=== PATIENT | female | born 1970 | race Caucasian/White ===

== ENCOUNTER 2023-09-06 11:30 | Inpatient (IN) | payer OTHER ==
[~2023-09-06] VITALS: Ht 149.9 cm; Wt 60.8 kg
[2024-01-23 10:33] LABS: BASOPHILS % (AUTO) 0.3 % (0.0-2.0); EOSINOPHILS # (AUTO) 0.3 K/uL (0-0.4); EOSINOPHILS % (AUTO) 5.5 % (0.0-4.0); HEMOGLOBIN 12.7 g/dL (12.0-16.0); LYMPHOCYTES # (AUTO) 2.4 K/uL (2.5-16.5); LYMPHOCYTES % (AUTO) 39.7 % (20.5-51.1); MEAN CORPUSCULAR HEMOGLOBIN 31 pg (27-31); MEAN CORPUSCULAR HGB CONC 34 g/dL (33-37); MONOCYTES # (AUTO) 0.4 K/uL (0.8-1.0); MONOCYTES % (AUTO) 6.6 % (1.7-9.3); NEUTROPHILS # (AUTO) 2.8 K/uL (1.8-7.7); NEUTROPHILS % (AUTO) 47.9 % (42.2-75.2); PLATELET COUNT (AUTO) 256 K/uL (140-450); RED BLOOD CELL COUNT(AUTO) 4.08 MIL/uL (4.20-5.40); RED CELL DISTRIBUTION WIDTH 14.3 % (11.6-13.7)
[2024-01-23 10:36] LABS: CALCIUM 9.4 mg/dL (8.5-10.1); CARBON DIOXIDE 25.9 mmol/L (21-32); CREATININE 0.6 mg/dL (0.6-1.3); POTASSIUM 3.9 mmol/L (3.5-5.1); TOTAL BILIRUBIN 0.5 mg/dL (0.0-1.0); TOTAL PROTEIN, SERUM 7.6 g/dL (6.4-8.2)
[2024-01-23] MEDS ORDERED: SEVOFLURANE 250 ML BTL INH ONE (11:25)
[2024-01-23] MEDS: fentaNYL citrate 0.05 MG/ML VIAL ONE (11:34)
[2024-01-23] MEDS: MIDAZOLAM 2 MG/2 ML VIAL ONE (11:34)
[2024-01-23] MEDS ORDERED: IBUPROFEN 800 MG TAB PO PRN (11:50)
[2024-01-23] MEDS ORDERED: TEMAZEPAM 15 MG CAP PO PRN (11:50)
[2024-01-23] MEDS ORDERED: oxyCODONE/APAP 5/325 MG 1 TAB TAB PO PRN ×2 (11:50)
[2024-01-23] MEDS ORDERED: SIMETHICONE 80 MG TAB.CHEW PO PRN (11:50)
[2024-01-23] MEDS ORDERED: KETOROLAC 30 MG/ML VIAL IVP PRN (11:50)
[2024-01-23] MEDS: ceFAZolin 2,000 MG VIAL ONE (12:05)
[2024-01-23] MEDS: SUGAMMADEX SODIUM 200 MG/2 ML VIAL IV ONE (12:29)
[2024-01-23] MEDS: BUPIVACAINE-MPF 0.25% 30 ML VIAL INJ ONE (12:30)
[2024-01-23] MEDS ORDERED: ONDANSETRON 4 MG/2 ML VIAL IVP PRN (12:55)
[2024-01-23] MEDS: LACTATED RINGERS 1,000 ML IV SCH (12:55)
[2024-01-23] MEDS ORDERED: MEPERIDINE 25 MG/ML SYR IVP PRN (12:55)
[2024-01-23] MEDS ORDERED: diphenhydrAMINE 50 MG/ML VIAL IVP PRN (12:55)
[2024-01-23] MEDS: ROCURONIUM 50 MG/5 ML VIAL IV ONE (13:08)
[2024-01-23] MEDS: METOCLOPRAMIDE 10 MG/2 ML INJ VIAL ONE (13:08)
[2024-01-23] MEDS: PROPOFOL 200 MG/20 ML VIAL IV ONE (13:08)
[2024-01-23] MEDS: KETOROLAC 30 MG/ML VIAL ONE (13:08)
[2024-01-23] MEDS: ONDANSETRON 4 MG/2 ML VIAL ONE (13:08)
[2024-01-23] MEDS: HYDROmorphone 1 MG/ML AMP IVP PRN (13:25)
[2024-01-23 14:55] VITALS: BP 136/66; PULSE 73; RESP 18; TEMP 97.6; O2SAT 95
[2024-01-23 16:00] VITALS: BP 163/94; PULSE 80; RESP 18; TEMP 98; O2SAT 97
[2024-01-23] MEDS ORDERED: LOSA-270 PO (16:57)
[2024-01-23] MEDS ORDERED: ATOR10TA PO (16:57)
[2024-01-23 18:14] VITALS: BP 154/92
[2024-01-23 20:00] VITALS: BP 164/95; PULSE 91; RESP 18; TEMP 98.6; O2SAT 96
[2024-01-23] MEDS ORDERED: BENAZEPRIL 20 MG TAB PO SCH (21:00)
[2024-01-23] MEDS: LOSARTAN 50 MG TAB PO SCH (22:36)
[2024-01-23] MEDS: DOCUSATE SOD/SENNA 50/8.6 MG 1 TAB PO SCH (22:37)
[2024-01-24] VITALS (8 sets, daily range): BP systolic 135–164; BP diastolic 83–95; PULSE 78–97; RESP 17–18; TEMP 96.9–98.9; O2SAT 95–97
[2024-01-24] MEDS: MEDS-TO-BEDS MC SCH (08:40)
[2024-01-24] MEDS: HYDROmorphone PFS 2 MG/ML SYR IVP PRN (14:14)
[2024-01-24] MEDS: ONDANSETRON 4 MG/2 ML VIAL IVP PRN (15:19)
[2024-01-25 04:00] VITALS: BP 157/92; PULSE 95; RESP 18; TEMP 98.1; O2SAT 97
[2024-01-25 08:00] VITALS: PULSE 84; RESP 18; O2SAT 96
[2024-01-25 08:43] VITALS: BP 167/97; PULSE 84; RESP 18; TEMP 97.4; O2SAT 96
[2024-01-25 09:57] VITALS: BP 144/88; PULSE 84; RESP 18; TEMP 97.4; O2SAT 96
== END 2024-01-25 10:52 | disposition home or self-care (01) | DRG 513 ==
LOC: MMU 01-23 09:30 → MTU 01-23 16:29
PROVIDERS: ADMIT Obstetrics & Gynecology; ATTEND Obstetrics & Gynecology
PROC: 0UT20ZZ Resection of Bilateral Ovaries, Open Approach (ICD-10-PCS; 2024-01-23)
PROC: 0UT70ZZ Resection of Bilateral Fallopian Tubes, Open Approach (ICD-10-PCS; 2024-01-23)
PROC: 0UT90ZZ Resection of Uterus, Open Approach (ICD-10-PCS; principal; 2024-01-23 11:30)
DX: N81.4 Uterovaginal prolapse, unspecified (principal)
CPT/HCPCS: 36415; 71045; 80053; 85025; 88307; J1170; J1885; J2250; J2405; J2704; J2765; J3010; J3490